=== PATIENT | male | born 1955 | race Caucasian/White ===

== ENCOUNTER 2020-05-01 06:50 | Day surgery (SDC) | payer MEDICARE ==
[~2020-05-01] VITALS: Ht 177.8 cm; Wt 119.3 kg
[~2020-05-01 06:50] MED LIST: FUROSEMIDE20 MG PO; GLUCOPHAGE500 MG PO; NAPROSYN500 MG PO
[2020-05-01 07:09] LABS: BASOPHILS 0.3 % (0-2); EOSINOPHILS 2.2 % (0-7); HEMATOCRIT 45.1 % (42.0-54.0); HEMOGLOBIN 15.2 g/dL (13.5-17.5); LYMPHOCYTES 28.4 % (15-50); MCH 31.6 pg (26.0-34.0); MCHC 33.7 g/dL (31.0-37.0); MCV 93.8 fL (80.0-100.0); MEAN PLATELET VOLUME 10.3 fL (7.4-10.4); MONOCYTES 7.6 % (2-11); NEUTROPHILS 61.5 % (40-80); PLATELET COUNT 190 10x3/uL (130-400); RBC 4.81 10x6/uL (4.20-6.10); RDW 12.1 % (11.5-14.5); WBC 5.8 10x3/uL (4.8-10.8)
[2020-05-01 07:47] LABS: CALC OSMOLALITY 285 mosm/kg (275-300); CALCIUM 8.6 mg/dL (8.5-10.1); CARBON DIOXIDE 28.1 mmol/L (21.0-32.0); CHLORIDE - SERUM 102 mmol/L (98-107); CREATININE - SERUM 0.9 mg/dL (0.6-1.3); GLUCOSE 268 mg/dL (74-106); POTASSIUM - SERUM 4.2 mmol/L (3.5-5.1); SODIUM 137 mmol/L (136-145); UREA NITROGEN 21 mg/dL (7-18); eGFR NON AFRICAN AMERICAN 90 mL/min (90-120)
[2020-05-01 08:01] VITALS: BP 125/81; Ht 177.8 cm; Wt 119.3 kg
[2020-05-01] MEDS ORDERED: HYDROCODON-ACE1 EA10 PO (09:12)
--- NOTE | 2020-05-01 09:41 | NUR ---
PT AWAKENING -NPA REMOVED AT 0940
--- NOTE | 2020-05-01 09:43 | NUR ---
PT OBSTRUCTING AIRWAY WITHOUT MANUAL CHIN LIFT - SPO2 97% ON 10LPM VIA SM
--- NOTE | 2020-05-01 09:53 | NUR ---
ALL AIRWAYS AND SUPPLEMENTAL 02 D/C AT 6375
--- NOTE | 2020-05-01 12:30 | NUR ---
1100-PT WITH HISTORY OF SLEEP APNEA. REQUIRING OXYGEN 3L/NC AND AWAKENED AT TIMES TO MAINTAIN 02 ABOVE 93%. AT BEDSIDE PULSE ON CONTINUOUS AND CL IN EASY REACH. PRETTY DROWSY.
--- NOTE | 2020-05-01 12:32 | NUR ---
1200-CONTINUE TO REQUIRE OXYGEN TO MAINTAIN LEVELS ABOVE 93% EASILY AROUSED WITH VERBAL STIMULI. HAS VOIDED USING URINAL. CONTINUE TO MONITOR UNTIL DISCHARGE CRITERIA MET.
--- NOTE | 2020-05-01 14:48 | NUR ---
1300-WEANED DOWN TO 1 L VIA N/C ON 02. NO DISTRESS. TOLERATING WATER AND JELLO. DRESSING TO GROIN CDI. SPOUSE AT BEDSIDE.
--- NOTE | 2020-05-01 14:49 | NUR ---
1350-NO DISTRESS. VSS. A&OX4, DRESSING CDI. REMOVED OXYGEN.
--- NOTE | 2020-05-01 14:51 | NUR ---
1422-REPORTS PAIN 02/01. VSS. NO DISTRESS. 02 REMAINS AT 97% ON RA. ADMINISTERED NORCO 10/325MG 1 BY MOUTH.
--- NOTE | 2020-05-01 14:52 | NUR ---
1433- REMOVED IV WITH CATH INTACT, DISPOSED INTO SHARPS, COVERED WITH GUAZE & SECURED WITH MEDIPORE TAPE. REVIEWED POST OP INSTRUCTIONS AND FOLLOW UP APPOINTMENT. EDUCATED PT AND IMPORTANCE OF WEARING BI-PAP EVERY NIGHT. BOTH VERBALIZED UNDERSTANDING OF ABOVE TEACHING.
--- NOTE | 2020-05-01 15:06 | NUR ---
1435-PT A&OX4, VSS, NO DISTERESS, REPORTS PAIN HAS SUBSIDED TO 3/10. ESCORTED OUT VIA W/C BY STAFF WITH SPOUSE.
--- NOTE | 2020-05-03 09:28 | OP ---
PATIENT NAME: SEBASTIAN MURRAY MEDICAL RECORD: [id number] :51 LOCATION:D.OPS ADMISSION DATE: SURGEON: SUSI MALDONADO MD DATE OF OPERATION: 05/01/2020 DATE OF OPERATION: 05/01/2020. PREOPERATIVE DIAGNOSES: 1. Scrotal sebaceous cyst. 2. Arthritis. 3. Diabetes mellitus. POSTOPERATIVE DIAGNOSES: 1. Scrotal sebaceous cyst. 2. Arthritis. 3. Diabetes mellitus. PROCEDURE: Excision of 1-cm scrotal sebaceous cyst. SURGEON: Susi Maldonado MD REPORT OF PROCEDURE: The patient was placed in the lithotomy position and the perineal region was prepped and draped in sterile fashion. An ovoid incision was made at the base of the scrotum down towards the anus. The length of this was about 3 cm. We then excised this area of skin and the underlying cystic cavity and surrounding fatty tissue. The cystic cavity was easily seen in the specimen. It was completely excised. Any bleeding from the surrounding tissues were treated with electrocautery. We irrigated out the wound and then infused a total of 10 mL of 0.25% Marcaine with epinephrine into the subcutaneous tissues. The subcutaneous tissues were reapproximated with interrupted 3-0 Vicryl and the skin was closed with running subcutaneous 5-0 Monocryl. COMPLICATIONS: None. CONDITION: Stable. ANESTHESIA: General endotracheal and local. BLOOD LOSS: Minimal. TRANSINT:[id number] Voice Confirmation ID: [id number] DOCUMENT ID: [id number] SUSI MALDONADO MD at 0928 CC: [id number] DICTATION DATE: 05/01/20915 MECHANIC: 05/01/20 2218 [facility] 05/01/20 [place] [id number]
== END 2020-05-01 14:35 | disposition home or self-care (01) ==
LOC: D.OPS 06:50 → D.PAN 09:00 → D.OPS 14:35
PROVIDERS: ATTEND Surgery
DX: L72.3 Sebaceous cyst (principal); M19.90 Unspecified osteoarthritis, unspecified site; E11.9 Type 2 diabetes mellitus without complications; Z79.84 Long term (current) use of oral hypoglycemic drugs